=== PATIENT | female | born 1995 | race African-American/Black ===

== ENCOUNTER 2017-09-25 11:42 | Emergency (ER) | payer MEDICAID ==
[~2017-09-25] VITALS: Ht 167.6 cm; Wt 60.0 kg
[2017-09-25] MEDS ORDERED: KETOROLAC 30MG/ML VIAL IV ONE (12:00)
[2017-09-25 12:15] LABS: BASOPHILS % 0.7 % (0.0-2.0); EOSINOPHILS % 2.2 % (0.0-5.0); HEMATOCRIT. 26.8 % (36.0-48.0); HEMOGLOBIN. 8.2 g/dL (12.0-16.0); MEAN CORPUSCULAR HEMOGLOBIN 20.6 pg (28.0-32.0); MEAN CORPUSCULAR VOLUME 67.3 fL (81.0-99.0); MONOCYTES % 8.2 % (2.0-8.0); NEUTROPHILS % 53.9 % (40.0-76.0); PLATELET 541 x1000/uL (130-400); RED BLOOD CELL COUNT 3.98 mill/uL (4.2-5.4); RED CELL DISTRIBUTION WIDTH 17.5 % (11.6-14.6)
[2017-09-25 12:23] LABS: PROTHROMBIN TIME 10.8 sec (9.4-11.6)
[2017-09-25 12:32] LABS: CARBON DIOXIDE 23 mEq/L (21-32); CHLORIDE 108 mEq/L (98-107); TROPONIN I < 0.02 ng/mL (0.00-0.04)
[2017-09-25 13:25] LABS: PLATELET ESTIMATE INCREASED
[2017-09-25 16:26] VITALS: BP 102/58
== END 2017-09-25 16:45 | disposition home or self-care (01) ==
LOC: ER 12:35
DX: R07.89 Other chest pain (principal); I48.91 Unspecified atrial fibrillation
CPT/HCPCS: 36415; 71010; 80053; 81025; 83880; 84484; 85025; 85610; 93005; 96374; 99285; J1885; Z7610

== ENCOUNTER 2018-01-22 14:33 | Emergency (ER) | payer MEDICAID ==
[~2018-01-22] VITALS: Ht 160 cm; Wt 52.0 kg
[2018-01-22 14:40] VITALS: BP 114/71
== END 2018-01-22 17:00 | disposition left against medical advice (07) ==
LOC: ER 14:33
DX: M79.602 Pain in left arm (principal)